=== PATIENT | male | born 1990 | race Caucasian/White ===

== ENCOUNTER 2021-12-23 12:59 | Outpatient (RCR) | payer BC, MEDICARE, SELFPAY ==
--- NOTE | 2021-12-23 13:50 | PTOPEVAL ---
Thank you for referring José Whitten to [facility].? The patient is scheduled to be seen for therapy? ____x/week for ___ weeks. Please review, sign, date and return this plan of care ZEENAT. I agree with and certify that the following plan of care is medically necessary. Referring Physician Date Admitting Provider: Attending Provider: Grisel Rodriguez Referring Provider: *PT Outpatient Evaluation Start: 12/23/21 12:53 Freq: Status: Active Protocol: Document 12/23/21 13:00 [facility] (Rec: 12/23/21 13:49 [facility] [id number]) Therapy Assessment Status Assessment Status Assessment Status Evaluation Evaluation Information Problem Diagnosis lumbar DDD, spinal stenosis, wheelchair evaluation Onset 12/15/21 Additional Evaluation Detail other medical diagnoses: sleep apnea, HTN, anxiety, chronic migraines, fibromyalgia Subjective Information patient reports she is wanting Query Text:As Reported By Patient/ to get a wheelchair (thinking [employer]) to help get in and out of the doctors office. she reports she struggles to walk long distances. she reports she can walk through a small store on a good day, but on bad days she is only able to make it 300ft or so. she reports she uses a walker when she gets unsteady. she reports she has had injections for the lower back pain, and is working on loosing weight. she reports she has had xrays and mri of the lumbar spine. she reports increased lower back pain with standing, walking, lifting, bending, twisting. patient lives in a house with 3 steps to get in and out of home. she reports it is a single level home. she reports she does not drive. patient reports mom drives her and has a carrier already on the car for wheelchair when ready. Prior Level of Function Comments Additional Prior Level of Function she reports she has noticed Comments declining walking performance and e
== END 2021-12-23 14:20 | disposition home or self-care (01) ==
LOC: CHSPT 12:59
DX: M51.36 Other intervertebral disc degeneration, lumbar region (principal); R26.89 Other abnormalities of gait and mobility
CPT/HCPCS: 97161